=== PATIENT | male | born 1995 ===

== ENCOUNTER → 2021-07-17 | Outpatient (REF) | LOC: M LABSMTC 09:19 | PROVIDERS: ATTEND Pediatrics | DX: Z11.52 Encounter for screening for COVID-19 (principal) ==

== ENCOUNTER 2021-08-30 17:01 | Emergency (ER) ==
[~2021-08-30] VITALS: Ht 167.6 cm; Wt 65.0 kg
[2021-08-30 17:10] VITALS: BP 139/63
[2021-08-30] MEDS ORDERED: KETOROLAC TROMETHAMINE 10 MG TAB PO ONE (20:15)
== END 2021-08-30 20:18 | disposition left against medical advice (07) ==
LOC: M ED 17:01
DX: Z53.21 Procedure and treatment not carried out due to patient leaving prior to being seen by health care provider (principal)